=== PATIENT | male | born 1995 | race Caucasian/White ===

== ENCOUNTER 2019-11-27 03:20 | Emergency (ER) | payer OTHER ==
[~2019-11-27] VITALS: Ht 195.6 cm; Wt 100.0 kg
[2019-11-27] MEDS ORDERED: LIDOCAINE VISCOUS 2% SOLN 15ML UDC SS ONE (04:45)
[2019-11-27] MEDS ORDERED: PROT1TAB2 PO (06:12)
[2019-11-27] MEDS ORDERED: TRAZ-252 PO (06:12)
[2019-11-27] MEDS ORDERED: PANTOPRAZOLE 40MG TAB (PROTONIX) PO ONE (06:15)
[2019-11-27 06:43] VITALS: BP 134/74
== END 2019-11-27 06:45 | disposition home or self-care (01) ==
LOC: M ED 03:20
DX: R09.89 Other specified symptoms and signs involving the circulatory and respiratory systems (principal)

== ENCOUNTER 2019-11-27 21:36 | Emergency (ER) | payer OTHER ==
[~2019-11-27] VITALS: Ht 195.6 cm; Wt 96.4 kg
[~2019-11-27 21:36] MED LIST: PROT1TAB2 PO; TRAZ-252 PO
[2019-11-27] MEDS ORDERED: ALBUTEROL 90 MCG/ACT 8GM HFA INHALER INH ONE (22:15)
[2019-11-27 22:45] LABS: BASO # 0.1 10^3/uL (0.0-0.2); BASO % 1.6 % (0.0-1.0); EOS # 0.2 10^3/uL (0.0-0.5); EOS % 2.9 % (0.0-3.0); HEMATOCRIT 42.2 % (42.0-52.0); HEMOGLOBIN 14.6 g/dl (13.5-17.5); LYMPH # 2.2 10^3/uL (1.5-5.0); LYMPH % 36.2 % (24.0-44.0); MEAN CORPUSCULAR HGB CONC 34.6 g/dl (32.0-36.5); MEAN CORPUSCULAR VOLUME 86.8 fl (80.0-96.0); MONO # 0.6 10^3/uL (0.0-0.8); NEUTROPHILS # 3.1 10^3/uL (1.5-8.5); PLATELET COUNT, AUTOMATED 309 10^3/uL (150-450); RED BLOOD COUNT 4.86 10^6/uL (4.30-6.10); WHITE BLOOD COUNT 6.1 10^3/uL (4.0-10.0)
[2019-11-27 23:03] LABS: INR 1.05; PROTHROMBIN TIME 13.4 SECONDS (11.8-14.0)
[2019-11-27 23:07] LABS: D-DIMER QUANT < 270 ng/ml (<500)
[2019-11-27 23:17] LABS: ALBUMIN 4.4 GM/DL (3.2-5.2); BILIRUBIN,DIRECT 0.2 MG/DL (0.0-0.2); BILIRUBIN,TOTAL 0.6 MG/DL (0.2-1.0); THYROID STIMULATING HORMONE 3.8 uIU/ML (0.358-3.740); TOTAL PROTEIN 7.7 GM/DL (6.4-8.2)
[2019-11-27] MEDS ORDERED: ISOVUE-370 76% 100ML VIAL As Ordered ONE (23:37)
[2019-11-27] MEDS ORDERED: NS 1,000 ML IV ONE (23:45)
--- NOTE | 2019-11-28 00:14 | REPVR ---
PROCEDURE INFORMATION: Exam: CT Head Without Contrast Exam date and time: 11/27/2019 11:39 PM Age: 24 years old Clinical indication: Other: Presyncope TECHNIQUE: Imaging protocol: Computed tomography of the head without contrast. Radiation optimization: All CT scans at this facility use at least one of these dose optimization techniques: automated exposure control; mA and/or kV adjustment per patient size (includes targeted exams where dose is matched to clinical indication); or iterative reconstruction. COMPARISON: No relevant prior studies available. FINDINGS: Brain: Normal. No hemorrhage. Unremarkable white matter. No mass effect. Ventricles: Normal. No ventriculomegaly. Bones/joints: Unremarkable. No acute fracture. Sinuses: Visualized sinuses are unremarkable. No fluid levels. Mastoid air cells: Visualized mastoid air cells are well aerated. Soft tissues: Unremarkable. IMPRESSION: No acute intracranial abnormality. Electronically signed by: Noe Lacy On 11/28/2019 00:13:41 AM
--- NOTE | 2019-11-28 00:25 | REPVR ---
PROCEDURE INFORMATION: Exam: CT Angiography Chest With Contrast Exam date and time: 11/27/2019 11:20 PM Age: 24 years old Clinical indication: Shortness of breath TECHNIQUE: Imaging protocol: Computed tomographic angiography of the chest with intravenous contrast. 3D rendering: MIP and/or 3D reconstructed images were created by the technologist. Radiation optimization: All CT scans at this facility use at least one of these dose optimization techniques: automated exposure control; mA and/or kV adjustment per patient size (includes targeted exams where dose is matched to clinical indication); or iterative reconstruction. Contrast material: ISO; Contrast volume: 75 ml; Contrast route: INTRAVENOUS (IV); COMPARISON: CR PORTABLE CHEST X-RAY 11/27/2019 10:35 PM FINDINGS: Pulmonary arteries: Normal. No pulmonary emboli. Aorta: Unremarkable. No aortic aneurysm. No aortic dissection. Lungs: Unremarkable. No consolidation. No masses. Pleural space: Unremarkable. No pneumothorax. No pleural effusion. Heart: Unremarkable. No cardiomegaly. No pericardial effusion. Lymph nodes: Unremarkable. No enlarged lymph nodes. Bones/joints: Unremarkable. No acute fracture. Soft tissues: Unremarkable. IMPRESSION: No acute findings. Electronically signed by: Jose Manuel Denson On 11/28/2019 00:25:50 AM
[2019-11-28 01:20] VITALS: BP 130/84
--- NOTE | 2019-11-28 08:13 | REP ---
Clinical: Cough and dyspnea . Comparison: None . Findings: The mediastinum and cardiac silhouette are stable and within normal limits for portable technique. The lung bell are clear without acute consolidation, effusion, or pneumothorax. Skeletal structures are intact. Impression: No acute cardiopulmonary process appreciated. Electronically Signed by Naveed Galaviz MD 11/28/2019 08:05 A
== END 2019-11-28 01:21 | disposition home or self-care (01) ==
LOC: M ED 21:36
DX: R09.89 Other specified symptoms and signs involving the circulatory and respiratory systems (principal); K21.9 Gastro-esophageal reflux disease without esophagitis
CPT/HCPCS: 70450; 71045; 71275; 80047; 80076; 84443; 85025; 85379; 85610; 87486; 87581; 87633; 87798; 93041; 94640; 94760; 96360; 99283; 99284; Q9967

== ENCOUNTER → 2021-01-01 | Outpatient (CLI) | payer OTHER ==
[2021-01-01 09:27] LABS: ALBUMIN 4.4 GM/DL (3.2-5.2); BILIRUBIN,DIRECT 0.2 MG/DL (0.0-0.2); BILIRUBIN,TOTAL 0.7 MG/DL (0.2-1.0); TOTAL PROTEIN 7.3 GM/DL (6.4-8.2)
--- NOTE | 2021-01-01 09:54 | REP ---
INDICATION: EPIGASTRIC PAIN. COMPARISON: None. TECHNIQUE: Real-time sonographic evaluation of right upper quadrant performed. FINDINGS: The gallbladder demonstrates no evidence of intraluminal sludge or calculi, wall thickening or pericholecystic fluid. There is no intrahepatic or extrahepatic biliary dilatation, common bile duct measures 3 mm in maximum diameter. The liver demonstrates homogeneous echotexture with no gross mass. The liver appears mildly enlarged with a length of approximately 19.1 cm. The pancreas demonstrates homogeneous echotexture with no gross mass. The right kidney demonstrates no hydronephrosis, with a normal size of 11.9 cm in length. No free fluid is seen. IMPRESSION: Length the liver is 19.1 cm, suggesting mild hepatomegaly. Otherwise negative right upper quadrant ultrasound. <Electronically signed by Emre Ramos > 01/01/21 0915
== END ==
LOC: M RAD 07:33
PROVIDERS: ATTEND Physician Assistant Medical
DX: R10.9 Unspecified abdominal pain (principal)

== ENCOUNTER → 2021-02-06 | Outpatient (CLI) | payer OTHER ==
[2021-02-06 13:57] LABS: ALBUMIN 4.1 GM/DL (3.2-5.2); BILIRUBIN,DIRECT 0.2 MG/DL (0.0-0.2); BILIRUBIN,TOTAL 0.6 MG/DL (0.2-1.0); TOTAL PROTEIN 7.2 GM/DL (6.4-8.2)
== END ==
LOC: M LAB 10:53
PROVIDERS: ATTEND Physician Assistant Medical
DX: R94.5 Abnormal results of liver function studies (principal)

== ENCOUNTER → 2021-04-10 | Outpatient (CLI) | payer OTHER ==
[~2021-04-10] MED LIST changes: +FAMO40TA3 PO
--- NOTE | 2021-04-10 11:30 | REP ---
INDICATION: EPIGASTRIC PAIN. COMPARISON: Ultrasound 01/01/2021 TECHNIQUE/RADIOTRACER AND DOSE: The patient received 6.4 mCi technetium 99m mebrofenin with sequential 5 minute images for 1 hour. Subsequently after 8 oz of Ensure consume 65 minutes post injection a further 60 minutes of dynamic imaging was completed in anterior and posterior projections. Gallbladder ejection fraction is calculated by a semi automated method. FINDINGS: Homogeneous tracer distribution throughout the liver is noted. Activity is 1st seen in the gallbladder fossa at 10 minutes with progressive filling of the gallbladder and washout of activity from the liver activity is seen into the small bowel after the fatty meal. Washout of activity from the liver and progression of peristalsis of activity into the small bowel is noted. The gallbladder ejection fraction is calculated at 88% for 1 hour. IMPRESSION: 1. Normal biliary scan with homogeneous tracer distribution in the liver, prompt transit to the gallbladder and than small-bowel with good washout from the liver. 2. Gallbladder ejection fraction at 88% in 1 hour post fatty meal is normal. The normal range is greater than 35% with this technique. <Electronically signed by Stu Monroy > 04/10/21 1121
== END ==
LOC: M RAD 08:33
PROVIDERS: ATTEND Physician Assistant Medical
DX: R10.13 Epigastric pain (principal)

== ENCOUNTER 2021-04-18 12:41 | Day surgery (SDC) | payer OTHER ==
[~2021-04-18] VITALS: Ht 198.1 cm; Wt 95.2 kg
[~2021-04-18 12:41] MED LIST changes: +NS 1,000 ML IV ONE
[2021-04-18 14:45] VITALS: BP 120/66
== END 2021-04-18 14:58 | disposition home or self-care (01) ==
LOC: M OPP 12:41
PROVIDERS: ATTEND Internal Medicine Gastroenterology
DX: R10.13 Epigastric pain (principal); Z88.8 Allergy status to other drugs, medicaments and biological substances; Z83.79 Family history of other diseases of the digestive system

== ENCOUNTER → 2021-05-01 | Outpatient (CLI) | payer OTHER ==
[~2021-05-01] MED LIST changes: -NS 1,000 ML IV ONE
[2021-05-01 14:33] LABS: HEMATOCRIT 42.3 % (42.0-52.0); HEMOGLOBIN 15.1 g/dl (13.5-17.5); MEAN CORPUSCULAR HEMOGLOBIN 30.3 pg (27.0-33.0); MEAN CORPUSCULAR HGB CONC 35.7 g/dl (32.0-36.5); MEAN CORPUSCULAR VOLUME 84.9 fl (80.0-96.0); PLATELET COUNT, AUTOMATED 304 10^3/uL (150-450); RED BLOOD COUNT 4.98 10^6/uL (4.30-6.10); WHITE BLOOD COUNT 6.7 10^3/uL (4.0-10.0)
[2021-05-01 14:58] LABS: ALBUMIN 4.5 GM/DL (3.2-5.2); ALT/SGPT 30 U/L (12-78); BILIRUBIN,DIRECT 0.3 MG/DL (0.0-0.2); BILIRUBIN,TOTAL 1.1 MG/DL (0.2-1.0); IRON (FE) 124 UG/DL (65-175); PERCENT SATURATION 41.3 % (19.7-50.0); TOTAL IRON BINDING CAPACITY 300 UG/DL (250-450); TOTAL PROTEIN 7.7 GM/DL (6.4-8.2)
[2021-05-01 15:19] LABS: HEPATITIS B SURFACE ANTIGEN NEGATIVE (NEGATIVE)
[2021-05-01 15:46] LABS: HEPATITIS B CORE ANTIBODY IGM NEGATIVE (NEGATIVE); HEPATITIS C VIRUS ABY INDEX 0.1 INDEX (<0.8)
[2021-05-05 16:09] LABS: ANCA-ATYPICAL <1:20 titer (Neg:<1:20); ANTI-MITOCHONDRIAL ANTIBODY <20.0 Units (0.0-20.0); ANTINUCLEAR ANTIBODIES DIRECT Negative (Negative); CYTOPLASMIC NEUTROP AB ANCA-C <1:20 titer (Neg:<1:20); PERINUCLEAR AB ANCA-P <1:20 titer (Neg:<1:20)
== END ==
LOC: M LAB 13:55
PROVIDERS: ATTEND Physician Assistant Medical
DX: R94.5 Abnormal results of liver function studies (principal)

== ENCOUNTER 2021-08-20 11:45 | Day surgery (SDC) | payer OTHER ==
[~2021-08-20] VITALS: Ht 195.6 cm; Wt 92.9 kg
[~2021-08-20 11:45] MED LIST changes: +LIDOCAINE 2% 100MG/5ML SDV (FOR ANES.) As Ordered ONE; +NS 1,000 ML IV ONE; +propofoL 200 MG/20 ML VIAL As Ordered ONE
[2021-08-20] MEDS ORDERED: propofoL 200 MG/20 ML VIAL As Ordered ONE (14:05)
[2021-08-20 14:20] VITALS: BP 128/64
== END 2021-08-20 14:52 | disposition home or self-care (01) ==
LOC: M OPP 11:45
PROVIDERS: ATTEND Internal Medicine Gastroenterology
DX: R19.4 Change in bowel habit (principal); R10.31 Right lower quadrant pain; R10.84 Generalized abdominal pain